=== PATIENT | male | born 1955 | race Caucasian/White ===

== ENCOUNTER 2021-06-09 03:33 | Emergency (ER) | payer MEDICAID ==
[~2021-06-09] VITALS: Ht 157.5 cm; Wt 76.0 kg
[2021-06-09 04:04] LABS: BASOPHILS # (AUTO) 0.1 10^3/uL (0.0-0.1); BASOPHILS % (AUTO) 1 % (0-10); EOSINOPHILS # (AUTO) 0.1 10^3/uL (0.0-0.3); EOSINOPHILS % (AUTO) 1 % (0-10); HEMATOCRIT 52 % (40-54); HEMOGLOBIN 17.4 g/dL (13.3-17.7); LYMPHOCYTES # (AUTO) 0.7 10^3/uL (1.0-4.0); LYMPHOCYTES % (AUTO) 5 % (12-44); MEAN CORPUSCULAR HEMOGLOBIN 33 pg (25-34); MEAN CORPUSCULAR HGB CONC 34 g/dL (32-36); MEAN CORPUSCULAR VOLUME 97 fL (80-99); MEAN PLATELET VOLUME 9.6 fL (9.0-12.2); MONOCYTES # (AUTO) 1.3 10^3/uL (0.0-1.0); MONOCYTES % (AUTO) 8 % (0-12); NEUTROPHILS % (AUTO) 85 % (42-75); PLATELET COUNT 242 10^3/uL (130-400); WHITE BLOOD COUNT 15.2 10^3/uL (4.3-11.0)
--- NOTE | 2021-06-09 04:04 | ED General ---
General Stated Complaint: PT FELL OFF TOILET,RT SIDE HEAD INJURY Source of Information: Caregiver ((brother)) Exam Limitations: Physical Impairments History of Present Illness Date Seen by Provider: Jun 09, 2021 Time Seen by Provider: 03:50 Initial Comments Patient is a 66-year-old gentleman with a history of Down syndrome who presents with his brother with a chief complaint of fall off of the toilet this morning. Brother states that Janelle must of gotten up to go to the bathroom as he has been having some diarrhea this evening he thinks that he might of fallen asleep on the toilet. Brother states that he woke up to the sound of Janelle falling off the toilet and heard him hollfartun for help. He thinks that he hit the right side of his head on the cabinet as he fell. Janelle has a history of subdural hematoma within the last year. They are uncertain as to the cause of that. Since the subdural he has been hallucinating quite a lot. He has been placed on some antipsychotic medications. He has had normal appetite recently. No fevers or chills. No cough or shortness of breath. He has been complaining of abdominal cramping and pain this evening. He is fully Covid vaccinated. Had a flu shot this year. Sees a doctor in [place]. All other review of systems reviewed with the brother and negative except as stated above Timing/Duration: 1 Hour Associated Systoms: Other (diarrhea, abdominal pain) Allergies and Home Medications Allergies Uncoded Allergies: pain pill (Adverse Reaction, Unknown, 06/09/21) Patient Home Medication List Home Medication List Reviewed: Yes Review of Systems Review of Systems Constitutional: see HPI EENTM: no symptoms reported Respiratory: no symptoms reported Cardiovascular: no symptoms reported Gastrointestinal: abdominal pain (RLQ), diarrhea Genitourinary: no symptoms reported Musculoskeletal: joint pain (right hip) Skin: no symptoms reported Psychiatric/Neurological: Other (recently hallucinating, seeing "bats") All Other Systems Reviewed Negative Unless Noted: Yes Physical Exam Vital Signs Vital Signs - First Documented 06/09/21 03:45 Temp 35.9 Pulse 105 Resp 21 B/P (MAP) 101/70 (80) Pulse Ox 94 O2 Delivery Room Air Capillary Refill : Height, Weight, BMI Height: '" Weight: lbs. oz. kg; BMI Method: General Appearance: No Apparent Distress, WD/WN Eyes: Bilateral Eye Abnormal EOM (congenitally "cross eyed") HEENT: Other (dry oral mucosa; large tongue) Neck: Other (diffusely tender over cervical spine and paraspinous muscles of c- spine) Respiratory: Lungs Clear, Normal Breath Sounds, No Accessory Muscle Use, No Respiratory Distress Cardiovascular: Regular Rate, Rhythm (tachy 102) Gastrointestinal: Soft, Abnormal Bowel Sounds (hyperactive), Tenderness (right side of abdomen) Extremity: Normal Inspection Neurologic/Psychiatric: Alert, No Motor/Sensory Deficits, Normal Mood/Affect Skin: Normal Color, Warm/Dry Progress/Results/Core Measures Suspected Sepsis SIRS Temperature: Pulse: Respiratory Rate: Laboratory Tests 06/09/21 03:57: White Blood Count 15.2H Blood Pressure / Mean: Laboratory Tests 06/09/21 03:57: Creatinine 1.45H, Platelet Count 242, Total Bilirubin 0.3 Results/Orders Lab Results Laboratory Tests Test 06/09/21 03:57 Range/Units White Blood Count 15.2 H 4.3-11.0 10^3/uL Red Blood Count 5.34 4.30-5.52 10^6/uL Hemoglobin 17.4 13.3-17.7 g/dL Hematocrit 52 40-54 % Mean Corpuscular Volume 97 80-99 fL Mean Corpuscular Hemoglobin 33 25-34 pg Mean Corpuscular Hemoglobin Concent 34 32-36 g/dL Red Cell Distribution Width 14.8 H 10.0-14.5 % Platelet Count 242 130-400 10^3/uL Mean Platelet Volume 9.6 9.0-12.2 fL Immature Granulocyte % (Auto) 1 % Neutrophils (%) (Auto) 85 H 42-75 % Lymphocytes (%) (Auto) 5 L 12-44 % Monocytes (%) (Auto) 8 0-12 % Eosinophils (%) (Auto) 1 0-10 % Basophils (%) (Auto) 1 0-10 % Neutrophils # (Auto) 13.0 H 1.8-7.8 10^3/uL Lymphocytes # (Auto) 0.7 L 1.0-4.0 10^3/uL Monocytes # (Auto) 1.3 H 0.0-1.0 10^3/uL Eosinophils # (Auto) 0.1 0.0-0.3 10^3/uL Basophils # (Auto) 0.1 0.0-0.1 10^3/uL Immature Granulocyte # (Auto) 0.1 0.0-0.1 10^3/uL Neutrophils % (Manual) 79 % Lymphocytes % (Manual) 4 % Monocytes % (Manual) 6 % Eosinophils % (Manual) 1 % Band Neutrophils 10 % Clumped Platelets SLIGHT Anisocytosis SLIGHT Sodium Level 142 135-145 MMOL/L Potassium Level 4.1 3.6-5.0 MMOL/L Chloride Level 105 98-107 MMOL/L Carbon Dioxide Level 23 21-32 MMOL/L Anion Gap 14 5-14 MMOL/L Blood Urea Nitrogen 24 H 7-18 MG/DL Creatinine 1.45 H 0.60-1.30 MG/DL Estimat Glomerular Filtration Rate 49 BUN/Creatinine Ratio 17 Glucose Level 155 H 70-105 MG/DL Calcium Level 9.1 8.5-10.1 MG/DL Corrected Calcium 9.2 8.5-10.1 MG/DL Total Bilirubin 0.3 0.1-1.0 MG/DL Aspartate Amino Transf (AST/SGOT) 46 H 5-34 U/L Alanine Aminotransferase (ALT/SGPT) 58 H 0-55 U/L Alkaline Phosphatase 129 40-136 U/L Total Protein 7.9 6.4-8.2 GM/DL Albumin 3.9 3.2-4.5 GM/DL My Orders Orders - LEYDA WILSON MD Ed Iv/Invasive Line Start (06/09/21 03:59) Cbc With Automated Diff (06/09/21 03:59) Comprehensive Metabolic Panel (06/09/21 03:59) Ct Head/Cervical Spine Wo (06/09/21 03:59) Manual Differential (06/09/21 03:57) Dicyclomine Capsule (Bentyl Capsule) (06/09/21 04:55) Loperamide Tablet (Imodium Tablet) (06/09/21 05:00) Vital Signs/I&O 06/09/21 03:45 Temp 35.9 Pulse 105 Resp 21 B/P (MAP) 101/70 (80) Pulse Ox 94 O2 Delivery Room Air Capillary Refill : Progress Note : Time: 04:48 Progress Note Janelle had quite alot of diarrhea while in the ER. Brother later told the tech he ate quite a lot of chocolate earlier in the day yesterday. He has not vo mited. He does have a bit of a leukocytosis. Electrolytes are normal. Mildly tender abdomen which is nonsurgical (no rebound/ridgidity or high pitched tinkling bowel sounds or hypoactive BS). Low suspicion for appendicitis, given the diarrhea, no fever and lack or rebound/ direct point tenderness over the RLQ. Will give a dose of immodium. He is not febrile, no bloody stools. recommend watchful waiting on the diarrhea. recheck with primary care doctor in 1-2 days. bentyl for cramps. plan of care discussed with his brother/family. Diagnostic Imaging Diagonstic Imaging: CT Comments [facility], [place] NAME: JANELLE DOYLE [facility] REC#: [id number] PT STATUS: REG ER : 1955 PHYSICIAN: LEYDA WILSON MD ADMIT DATE: 06/09/21/ER Draft Date of Exam:06/09/21 CT HEAD/CERVICAL SPINE WO EXAMINATION: CT head and CT cervical spine without contrast. TECHNIQUE: Multiple contiguous axial images were obtained through the brain and cervical spine without the use of intravenous contrast. Sagittal and coronal reformations through the cervical spine were then performed. All CT scans use one or more of the following dose optimizing techniques: automated exposure control, MA and/or KvP adjustment based on patient size and exam type or iterative reconstruction. HISTORY: Head pain after fall COMPARISON: None available. FINDINGS: HEAD: Mild diffuse cerebral volume loss with proportional enlargement of the ventricles and sulci. Mild hypodensities throughout the supratentorial white matter of both cerebral hemispheres. No acute intracranial hemorrhage or abnormal extra-axial fluid collections are present. Calcification of the intracranial ICAs. No hyperdense vessel. The calvarium is intact. The mastoid air cells are clear. The visualized paranasal sinuses are clear. Surgical changes from right cataract repair. C-SPINE: There is straightening of the normal cervical lordosis. Vertebral body heights are maintained. No acute fracture, dislocation, or destructive osseous process. There is congenital nonunion of the posterior arch of C1. There is multilevel facet hypertrophy without perched facets. There is multilevel cervical spondylosis. The paraspinous soft tissues are normal. The visualized thyroid gland is normal. The visualized lung apices are normal. IMPRESSION: 1. No acute intracranial abnormality. Chronic microangiopathy and volume loss. 2. Degenerative changes in the cervical spine without acute osseous abnormality. Dictated on workstation # [id number] Dict: 06/09/218 Trans: 06/09/21 0434 [facility] [id number] Interpreted by: GEREMIAS GORE DO Electronically signed by: Departure Impression Primary Impression: Minor head injury Qualified Codes: S09.90XA - Unspecified injury of head, initial encounter Additional Impression: Diarrhea Qualified Codes: K59.1 - Functional diarrhea Disposition: 01 HOME, SELF-CARE Condition: Stable Departure-Patient Inst. Decision time for Depature: 05:13 Referrals: YOVANI MCCLELLAN MD (PCP/Family) Primary Care Physician Patient Instructions: Minor Head Injury (DC), Diarrhea in Adolescents and Adults Add. Discharge Instructions: Encourage fluids so that he stays well-hydrated. You can try some extra strength Tylenol, 2 tablets every 6 hours as needed for cramping/pain. [id number] Imodium as per instructions on the box. If he develops a fever, worsening pain, blood in his stool stop the Imodium and please bring him back for reevaluation. Follow-up with your primary care physician. LEYDA WILSON MD Jun 09, 2021 04:04
[2021-06-09 04:14] LABS: ALBUMIN 3.9 GM/DL (3.2-4.5)
[2021-06-09 04:15] LABS: POTASSIUM 4.1 MMOL/L (3.6-5.0)
[2021-06-09 04:16] LABS: CALCIUM 9.1 MG/DL (8.5-10.1)
[2021-06-09 04:17] LABS: TOTAL PROTEIN 7.9 GM/DL (6.4-8.2)
[2021-06-09 04:19] LABS: BILIRUBIN,TOTAL 0.3 MG/DL (0.1-1.0)
[2021-06-09 04:21] LABS: CREATININE SERUM 1.45 MG/DL (0.60-1.30)
--- NOTE | 2021-06-09 04:34 | Diagnostic Imaging Report ---
EXAMINATION: CT head and CT cervical spine without contrast. TECHNIQUE: Multiple contiguous axial images were obtained through the brain and cervical spine without the use of intravenous contrast. Sagittal and coronal reformations through the cervical spine were then performed. All CT scans use one or more of the following dose optimizing techniques: automated exposure control, MA and/or KvP adjustment based on patient size and exam type or iterative reconstruction. HISTORY: Head pain after fall COMPARISON: None available. FINDINGS: HEAD: Mild diffuse cerebral volume loss with proportional enlargement of the ventricles and sulci. Mild hypodensities throughout the supratentorial white matter of both cerebral hemispheres. No acute intracranial hemorrhage or abnormal extra-axial fluid collections are present. Calcification of the intracranial ICAs. No hyperdense vessel. The calvarium is intact. The mastoid air cells are clear. The visualized paranasal sinuses are clear. Surgical changes from right cataract repair. C-SPINE: There is straightening of the normal cervical lordosis. Vertebral body heights are maintained. No acute fracture, dislocation, or destructive osseous process. There is congenital nonunion of the posterior arch of C1. There is multilevel facet hypertrophy without perched facets. There is multilevel cervical spondylosis. The paraspinous soft tissues are normal. The visualized thyroid gland is normal. The visualized lung apices are normal. IMPRESSION: 1. No acute intracranial abnormality. Chronic microangiopathy and volume loss. 2. Degenerative changes in the cervical spine without acute osseous abnormality. Dictated by: Dictated on workstation # [id number]
[2021-06-09 04:41] LABS: BAND NEUTROPHILS 10 %; EOSINOPHILS % (MANUAL) 1 %; LYMPHOCYTES % (MANUAL) 4 %; MONOCYTES % (MANUAL) 6 %; NEUTROPHILS % (MANUAL) 79 %
[2021-06-09 04:42] LABS: ANISOCYTOSIS SLIGHT; PLATELET CLUMPS SLIGHT
[2021-06-09] MEDS ORDERED: DICYCLOMINE 10 MG (BENTYL) CAP PO STA (04:55)
[2021-06-09] MEDS ORDERED: LOPERAMIDE 2 MG (IMODIUM) TABLET PO ONE (05:00)
[2021-06-09 05:43] VITALS: BP 108/70
== END 2021-06-09 05:43 | disposition home or self-care (01) ==
LOC: EDUNIT# 03:33 → ER 03:40
DX: S09.90XA Unspecified injury of head, initial encounter (principal); R19.7 Diarrhea, unspecified; W18.12XA Fall from or off toilet with subsequent striking against object, initial encounter
CPT/HCPCS: 36415; 70450; 72125; 80053; 85007; 85027